=== PATIENT | male | born 1955 | race Caucasian/White ===

== ENCOUNTER 2016-12-15 13:33 | Emergency (ER) | payer BC | END 2016-12-15 14:04 | disposition left against medical advice (07) | LOC: UCEAST 13:33 | DX: M54.9 Dorsalgia, unspecified (principal); Z53.21 Procedure and treatment not carried out due to patient leaving prior to being seen by health care provider ==

== ENCOUNTER 2017-02-15 16:00 | Emergency (ER) | payer BC ==
[2017-02-15] MEDS ORDERED: Tetan/Diph/Pertus SYR(Tdap)* 0.5 ML SYR(BOOSTRIX) use SYR IM ONE ×2 (16:40→16:41)
--- NOTE | 2017-02-15 16:40 | ED ---
Laceration/Wound HPI - HPI Summary HPI Summary: Patient presents to the ED with 2.5cm laceration to the thenar palm of the left hand sustained by a large knife. Tetanus not UTD. The laceration is superficial. Denies temperature, color changes or numbness or tingling. Denies blood thinners and otherwise healthy. Pulses +2 bilaterally and cap refill < 2 sec. - History of Current Complaint Stated Complaint: LT HAND LACERCATION Time Seen by Provider: 02/15/17 16:21 Hx Obtained From: Patient Mechanism of Injury: Sharp/Blunt Trauma Onset/Duration: Sudden Onset Aggravating: Movement Alleviating: Compression Timing: Constant Onset Severity: Mild Current Severity: None Pain Intensity: 0 Associated Signs & Symptoms: Negative Related Hx: Dominant Hand (Right) - Allergy/Home Medications Allergies/Adverse Reactions: Allergies Allergy/AdvReac Type Severity Reaction Status Date / Time Penicillins [PCN] Allergy See Comment Verified 12/10/16 13:22 PMH/Surg Hx/FS Hx/Imm Hx Previously Healthy: Yes Endocrine/Hematology History: Denies: Hx Diabetes Cardiovascular History: Denies: Hx Hypertension, Hx Pacemaker/ICD Sensory History: Denies: Hx Hearing Aid Psychiatric History: Denies: Hx Panic Disorder - Surgical History Surgery Procedure, Year, and Place: VASECTOMY, TONSILECTOMY, 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 - Immunization History Hx Pertussis Vaccination: No Immunizations Up to Date: Unable to Obtain/Confirm Infectious Disease History: No Infectious Disease History: Denies: Traveled Outside the [place] in Last 30 Days - Social History Occupation: Employed Full-time Lives: With Family Alcohol Use: Occasionally Hx Substance Use: No Substance Use Type: Reports: None Smoking Status (MU): Never Smoked Tobacco Review of Systems Constitutional: Negative Negative: Fever, Chills, Fatigue, Skin Diaphoresis Cardiovascular: Negative Respiratory: Negative Gastrointestinal: Negative Genitourinary: Negative Positive: no symptoms reported, see HPI Musculoskeletal: Negative Positive: Other - left thenar palm laceration Neurological: Negative All Other Systems Reviewed And Are Negative: Yes Physical Exam Triage Information Reviewed: Yes Vital Signs On Initial Exam: Initial Vitals Temp Pulse Resp BP Pulse Ox 98.8 F 71 15 132/95 99 02/15/17 16:10 02/15/17 16:10 02/15/17 16:10 02/15/17 16:10 12/25/17 16:10 Vital Signs Reviewed: Yes Appearance: Positive: Well-Appearing, Well-Nourished Skin: Positive: Warm, Skin Color Reflects Adequate Perfusion, Other - left thenar palm laceration Head/Face: Positive: Normal Head/Face Inspection Eyes: Positive: EOMI, BRYNN, Conjunctiva Clear Neck: Positive: Supple, No Lymphadenopathy Respiratory/Lung Sounds: Positive: Clear to Auscultation, Breath Sounds Present Cardiovascular: Positive: RRR, Pulses are Symmetrical in both Upper and Lower Extremities Musculoskeletal: Positive: Strength/ROM Intact Neurological: Positive: Speech Normal Psychiatric: Positive: Normal, Affect/Mood Appropriate - Lauren Coma Scale Coma Scale Total: 15 Diagnostics - Vital Signs Vital Signs Temp Pulse Resp BP Pulse Ox 02/15/17 16:10 98.8 F 71 15 132/95 99 - Laboratory Lab Statement: Any lab studies that have been ordered have been reviewed, and results considered in the medical decision making process. Laceration Repair Course/Dx - Course Course Of Treatment: left thenar palm laceration. Timeout obtained. Cleansed wound. Irrigated with 20CC's normal saline. Lidocaine without epi as local anesthetic - 2ml. 4-0 non-absorbable prolene. 5 sutures placed using simple interrupted technique. Patient tolerated well. Cleaned and dressed wound with telfa dressing. NV exam WNL. Sutures out in 5 days. Return precautions given. Patient OK with discharge. - Differential Dx Differental Diagnoses: Abrasion, Avulsion - Clinical Impression Provider Diagnoses: Laceration Discharge - Discharge Plan Condition: Stable Disposition: HOME Patient Education Materials: Laceration (ED), Stitches Removal (ED) Referrals: Manoj Weston MD [Primary Care Provider] - Additional Instructions: Suture removal in 7 days Keep gauze wrapped for 24 hours then may leave open to air
[2017-02-15 16:57] VITALS: BP 138/93
== END 2017-02-15 16:55 | disposition home or self-care (01) ==
LOC: ED 16:00
DX: S61.412A Laceration without foreign body of left hand, initial encounter (principal); W26.0XXA Contact with knife, initial encounter; Y92.9 Unspecified place or not applicable
CPT/HCPCS: 12001; 90471; 90715; 99282

== ENCOUNTER 2017-10-11 07:14 | Emergency (ER) | payer BC ==
[2017-10-11] MEDS ORDERED: Dexamethasone IV* 4 MG/ML 1 ML (4 MG) IM ONE (07:30)
[2017-10-11] MEDS ORDERED: Famotidine TAB* 20 MG PO ONE (07:30)
--- NOTE | 2017-10-11 07:32 | UC ---
Allergic Reaction HPI - HPI Summary HPI Summary: This is scribe Valente [facility] documenting for attending Dick Daniel MD. Pt is a 62 y/o M c/o rash onsetting ~12 hours ago, last evening. Assoc. Sx: Itchy eyes. Denies: SOB, throat tightening, swelling of lips/tongue. Patient reports eating some pistachios last night when he started experiencing some itchy eyes. He reports waking up this AM with diffuse hives. I, Dr. Daniel, personally performed the services described in this documentation as scribed in my presence and it is both accurate and complete. - History of Current Complaint Stated Complaint: RASH Time Seen by Provider: 10/11/17 07:19 Hx Obtained From: Patient Onset/Duration: Gradual Onset, Lasting Hours, Still Present Character: Hives Associated Signs And Symptoms: Positive: Rash - hives. 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 Respiratory: Other - NEG: SOB All Other Systems Reviewed And Are Negative: Yes Physical Exam - Summary Physical Exam Summary: VITAL SIGNS: Reviewed. GENERAL: Patient is a well-developed and nourished Male who is lying comfortable in the stretcher. Patient is not in any acute respiratory distress. HEAD AND FACE: Normocephalic EYES: PERRLA, EOMI x 2. EARS: Hearing grossly intact. MOUTH: Oropharynx within normal limits. No swelling of lips and tongue. NECK: Supple, trachea is midline, no adenopathy, no JVD, no carotid bruit. CHEST: Symmetric, no tenderness at palpation LUNGS: Clear to auscultation bilaterally. No wheezing or crackles. CVS: Regular rate and rhythm, S1 and S2 present, no murmurs or gallops appreciated. ABDOMEN: Soft, non-tender. Bowel sounds are normal. No abdominal abnormal pulsations. EXTREMITIES: Full ROM in all major joints, no edema, no cyanosis or clubbing. NEURO: Alert and oriented x 3. No acute neurological deficits. Speech is normal and follows SKIN: Diffuse hives, erythema, airway patent. Triage Information Reviewed: Yes Vital Signs Reviewed: Yes Allergic Reaction Course/Dx - Course Course Of Treatment: Patient is a 62-year-old male with allergic reaction. She was given Decadron and Pepcid. I held a Benadryl since the patient was driving. Patient was given a prescription for Benadryl, Pepcid, and prednisone. Patient also was given a prescription for a EpiPen. Patient doesn' t have any swelling of the throat, the airway is patent, no swelling of the tongue or lips. He is hemodynamically stable alert and oriented 3. Patient is discharged home with follow-up with PCP. He was instructed to return to the urgent care or go to the emergency room if the symptoms worsen. He understands and agrees. - Differential Dx/Diagnosis Provider Diagnoses: allergic reaction Discharge - Sign-Out/Discharge Documenting (check all that apply): Patient Departure All imaging exams completed and their final reports reviewed: No Studies - Discharge Plan Condition: Stable Disposition: HOME Prescriptions: diPHENhydraMINE PO* [Benadryl PO 25 MG TAB*] 25 mg PO TID PRN #30 tab PRN Reason: Allergy Symptoms Famotidine TAB* [Pepcid 20 MG TAB*] 20 mg PO DAILY #14 tab predniSONE TAB* [Deltasone 20 MG TAB*] 40 mg PO DAILY #10 tab Patient Education Materials: Food Allergy (ED) Referrals: Manoj Weston MD [Primary Care Provider] - 3 Days Additional Instructions: RETURN TO URGENT CARE FOR ANY WORSENING OR NEW SYMPTOMS. - Billing Disposition and Condition Condition: STABLE Disposition: Home - Attestation Statements Document Initiated by Scribe: Yes Documenting Scribe: Valente Escalona Provider For Whom Scribe is Documenting (Include Credential): Dick Daniel MD. Scribe Attestation: Valente Anderson, scribed for Dick Daniel MD. on 10/11/17 at 1550. Scribe Documentation Reviewed: Yes Provider Attestation: The documentation as recorded by the scribe, Valente Escalona accurately reflects the service I personally performed and the decisions made by me, Dick Daniel MD.
[2017-10-11 07:35] VITALS: BP 112/69
== END 2017-10-11 07:50 | disposition home or self-care (01) ==
LOC: UCEAST 07:14
DX: T78.40XA Allergy, unspecified, initial encounter (principal); X58.XXXA Exposure to other specified factors, initial encounter; Z88.0 Allergy status to penicillin
CPT/HCPCS: 96372; 99202; A9270-GY; G0463; J1100

== ENCOUNTER 2018-08-26 09:03 | Emergency (ER) | payer BC ==
[2018-08-26 09:24] VITALS: BP 107/70
[2018-08-26] MEDS ORDERED: Triamcinolone Acetonide* 40 MG/ML 1 ML VIAL IM ONE (09:52)
--- NOTE | 2018-08-26 09:57 | UC ---
Skin Complaint HPI - HPI Summary HPI Summary: 63 yo male with onset of pruritic rash the day after pruning dorsey bushed x 4 days no f/c - History of Current Complaint Chief Complaint: UCRash Time Seen by Provider: 08/26/18 09:48 Stated Complaint: RASH Onset/Duration: Gradual Onset Timing: Constant Onset Severity: Mild Current Severity: Moderate Pain Intensity: 7 Pain Scale Used: 0-10 Numeric Location: Other - arms /legs/left belt line Character: Pruritus, Redness, Raised Aggravating Factor(s): Nothing Alleviating Factor(s): Nothing Associated Signs & Symptoms: Positive: Rash - Allergy/Home Medications Allergies/Adverse Reactions: Allergies Allergy/AdvReac Type Severity Reaction Status Date / Time Penicillins Allergy Rash Verified 08/26/18 09:21 pistachio nut Allergy Hives Verified 08/26/18 09:21 Home Medications: Home Medications Hydrocortisone 0.5% CM(NF) [Hydrocortisone 0.5% CREAM(NF)] 1 applic TOPICAL DAILY PRN 08/26/18 [History Confirmed 08/26/18] Ibuprofen 800 mg PO ONCE PRN 08/26/18 [History Confirmed 08/26/18] PMH/Surg Hx/FS Hx/Imm Hx Previously Healthy: Yes - Surgical History Surgical History: Yes Surgery Procedure, Year, and Place: VASECTOMY, TONSILECTOMY, 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 - Family History Known Family History: Negative: Cardiac Disease, Hypertension, Diabetes - Social History Alcohol Use: Occasionally Alcohol Amount: few drinks/week Substance Use Type: None Smoking Status (MU): Never Smoked Tobacco Review of Systems All Other Systems Reviewed And Are Negative: Yes Constitutional: Positive: Negative Skin: Positive: Rash Eyes: Positive: Negative ENT: Positive: Negative Respiratory: Positive: Negative Cardiovascular: Positive: Negative Gastrointestinal: Positive: Negative Genitourinary: Positive: Negative Motor: Positive: Negative Neurovascular: Positive: Negative Musculoskeletal: Positive: Negative Neurological: Positive: Negative Psychological: Positive: Negative Physical Exam Triage Information Reviewed: Yes Appearance: Well-Appearing, No Pain Distress, Well-Nourished Vital Signs: Initial Vital Signs Temp 97.8 F 08/26/18 09:18 Pulse 51 08/26/18 09:18 Resp 18 08/26/18 09:18 BP 107/70 08/26/18 09:18 Pulse Ox 99 08/26/18 09:18 Vital Signs Reviewed: Yes Eyes: Positive: Conjunctiva Clear ENT: Positive: Hearing grossly normal. Negative: Nasal congestion, Nasal drainage, Trismus, Muffled voice, Hoarse voice Neck: Positive: Supple Respiratory: Positive: Lungs clear, Normal breath sounds, No respiratory distress, No accessory muscle use Cardiovascular: Positive: RRR, No Murmur Abdominal Exam: Normal Bowel Sounds: Positive: Present Musculoskeletal: Positive: ROM Intact, No Edema Neurological: Positive: Alert Psychological Exam: Normal Skin Exam: Other - rash c/w rhus dermatitis Course/Dx - Diagnoses Provider Diagnosis: Contact dermatitis Discharge - Sign-Out/Discharge Documenting (check all that apply): Patient Departure All imaging exams completed and their final reports reviewed: No Studies - Discharge Plan Condition: Stable Disposition: HOME Patient Education Materials: Contact Dermatitis (ED) Referrals: Manoj Weston MD [Primary Care Provider] - 5 Days (if not markedly improved) Additional Instructions: oral benadryl for itch cool compresses with epsom salts on blistering areas - Billing Disposition and Condition Condition: STABLE Disposition: Home
== END 2018-08-26 10:15 | disposition home or self-care (01) ==
LOC: UCEAST 09:03
DX: L25.9 Unspecified contact dermatitis, unspecified cause (principal)
CPT/HCPCS: 96372; 99211; G0463; J3301

== ENCOUNTER 2021-05-30 07:57 | Observation (INO) ==
[~2021-05-30 07:57] MED LIST: Buffered Lidocaine 1% SYRIN 1 ml INTRADERM ONE; Lactated Ringers 1000 ml BAG 1,000 ML IV SCH
[2021-05-30] MEDS ORDERED: Methylene Blue 0.5 % 50 MG/10 ML AMP IV ONE (09:12)
[2021-05-30] MEDS ORDERED: Propofol 10 MG/ML 20 ML BTL ONE (09:15)
[2021-05-30] MEDS ORDERED: Lidocaine 2% PF 5 ML VIAL ONE (09:15)
[2021-05-30] MEDS ORDERED: Rocuronium 50 mg VIAL 10 mg/ml 5 ml VIAL (50 mg) ONE (09:15)
[2021-05-30] MEDS ORDERED: fentaNYL 250 mcg/5 ml 50 MCG/ML 5 ml VIAL (250 MCG) ONE (09:15)
[2021-05-30] MEDS ORDERED: Midazolam 2 mg/2 ml VIAL 1 mg/ml 2 ml VIAL (2 mg) ONE (09:15)
[2021-05-30] MEDS ORDERED: Glycopyrrolate IV 0.2 MG/ML 1 ML VIAL ONE (12:11)
[2021-05-30] MEDS ORDERED: EPHEDrine (Pressors) 50 MG/ML VIAL ONE (12:11)
[2021-05-30] MEDS ORDERED: Naloxone 0.4 mg VIAL 0.4 mg/ml 1 ml VIAL IV PRN (12:35)
[2021-05-30] MEDS ORDERED: Ondansetron 4 mg VIAL 2 MG/ML 2 ml VIAL IV PRN ×2 (12:35→14:19)
[2021-05-30] MEDS ORDERED: fentaNYL 100 mcg/2 ml 50 MCG/ML VIAL IV PRN (12:35)
[2021-05-30] MEDS ORDERED: oxyCODONE/Acetamin 5/325 mg TAB PO PRN ×2 (12:35→14:20)
[2021-05-30] MEDS ORDERED: fentaNYL 100 mcg/2 ml 50 MCG/ML VIAL ONE (13:17)
[2021-05-30] MEDS ORDERED: Morphine 2 MG/ML SYRINGE IV PRN (14:19)
[2021-05-30] MEDS ORDERED: HYDROcodone/ACETAMIN 5/325 mg TAB PO PRN (17:29)
[2021-05-30] MEDS ORDERED: NS 0.9% 1000 ml BAG 1,000 ML IV SCH (18:30)
[2021-05-31 06:43] LABS: ABS Eosinophils 0.1 10^3/ul (0-0.6); ABS Lymphocytes 0.3 10^3/ul (1.0-4.8); ABS Monocytes 0.5 10^3/ul (0-0.8); ABS Neutrophils 2.9 10^3/ul (1.5-7.7); Eosinophil % 2.3 %; Hematocrit 31 % (42-52); Hemoglobin 10.5 g/dL (14.0-18.0); Lymphocyte % 8.4 %; Mean Corpuscular HGB Conc 34 g/dL (31-36); Mean Corpuscular Hemoglobin 33 pg (27-31); Mean Corpuscular Volume 97 fL (80-94); Mean Platelet Volume 6.3 fL (7.4-10.4); Platelet Count 165 10^3/uL (150-450); Red Blood Count 3.14 10^6 /uL (4.18-5.48); Red Cell Distribution Width 13 % (10-15); White Blood Count 3.9 10^3/uL (3.5-10.8)
[2021-05-31 07:00] LABS: Calcium 8.6 mg/dL (8.6-10.3); Potassium 4.6 mmol/L (3.5-5.0); eGFR CKD-EPI 91.1 (>60)
[2021-05-31 07:20] VITALS: BP 101/64
[2021-05-31] MEDS ORDERED: Pneumococcal Vac 23-Polyvalent IM ONE (09:00)
== END 2021-05-31 11:55 | disposition home or self-care (01) ==
LOC: SSU 07:57 → OR 07:57 → SUATTDRO 13:39
PROVIDERS: ADMIT Internal Medicine; ATTEND Internal Medicine